=== PATIENT | female | born 1965 | race Caucasian/White ===

== ENCOUNTER 2017-10-15 21:40 | Emergency (ER) | payer SELFPAY ==
[~2017-10-15] VITALS: Ht 170.2 cm; Wt 73.0 kg
[2017-10-16] MEDS ORDERED: IBUPROFEN 400MG TABLET PO ONE (02:00)
[2017-10-16 03:58] VITALS: BP 132/83
== END 2017-10-16 04:07 | disposition home or self-care (01) ==
LOC: ER 22:05
DX: S83.92XA Sprain of unspecified site of left knee, initial encounter (principal); W22.03XA Walked into furniture, initial encounter; Y93.89 Activity, other specified; Y92.89 Other specified places as the place of occurrence of the external cause
CPT/HCPCS: 73562; 99284; Z7610